=== PATIENT | male | born 1960 | race African-American/Black ===

== ENCOUNTER 2024-09-19 10:50 | Emergency (ER) | payer MEDICAID, SELFPAY ==
--- NOTE | ~2024-09-19 | CT_ITS ---
CLINICAL HISTORY: neck pain CT cervical spine without contrast Comparison: None Findings: Degenerative changes of the cervical spine with osteophyte formation. There is narrowing of the C2-C3, C3-C4, C5-C6 intervertebral disc space. There is grade 1 retrolisthesis of C5 on C6. No acute fractures or dislocations. C1-C2: Unremarkable C2-C3: Unremarkable C3-C4: No spinal stenosis. Mild bilateral neural foramina stenosis. C4-C5: Unremarkable C5-C6: No spinal stenosis. Mild bilateral neural foramina stenosis. C6-C7: Unremarkable C7-T1: Unremarkable No acute findings on limited view of the intracranial contents. Soft tissues of the neck are normal. Lung apices are clear. IMPRESSION: No acute findings. Degenerative changes of the cervical spine as above. This document has been electronically signed by: Anton Buckley MD on 09/19/2024 12:58:02
[2024-09-19 11:41] VITALS: BP 133/91; PULSE 85; RESP 16; TEMP 36.2; O2SAT 100; BMI 26.4
--- NOTE | 2024-09-19 11:43 | ED.GENADULT ---
HPI - General Adult General Chief complaint: Neck Pain/Injury Stated complaint: Neck pain Time Seen by Provider: 09/19/24 13:30 Source: patient Mode of arrival: ambulatory Limitations: no limitations History of Present Illness ED Provider: KAEL LOMELI narrative: 64 yo male with PMH of HIV, HTN, not on thinners here with c/o neck pain s/p waking up with symptoms with pain and spasm to R neck. He can move the neck but it hurts to turn to the right. No numbness, weakness, fevers. No other neuro symptoms. He is currently being worked up for leg pain and constipation which has been 2+ months. He has no rash and no other symptoms. 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 Onset (ago): day(s) (1) Radiation: neck Severity: moderate Quality: aching Pain Consistency: intermittent Relieving factors: none Exacerbating factors: movement Associated symptoms: denies other symptoms Treatments prior to arrival: none Related Data Previous Rx's ?Medication ?Instructions ?Recorded cyclobenzaprine 10 mg tablet 10 mg PO TID PRN muscle spasm #20 09/19/24 tabs ibuprofen 600 mg tablet 600 mg PO Q6H PRN pain #30 tabs 09/19/24 lidocaine 5 % topical patch 1 patch topical DAILY #30 ea 09/19/24 Allergies Allergy/AdvReac Type Severity Reaction Status Date / Time No Known Allergies Allergy Verified 09/19/24 11:43 [No Known Allergies*] Review of Systems Review of Systems: Constitutional : No Fever, No Chills, No Fatigue ENT/Mouth : No sore throat, No Rhinorrhea Eyes: No Eye Pain, No Swelling, No Redness Cardiovascular : No Chest Pain, No SOB, No Dyspnea on Exertion Respiratory : No Cough, No Sputum Gastrointestinal : No Nausea, No Vomiting, No Diarrhea, No abdominal Pain Genitourinary : No Dysuria, No Urinary Frequency, No Hematuria, Musculoskeletal : No joint pain, No Myalgias, No Joint Swelling, pos neck pain Skin : No Skin Lesions, No rash Neuro : No Weakness, No Numbness, No Dizziness, no Headache Psych : No Anxiety/Panic, No Depression All other systems reviewed and are negative Physical Exam ED Vital Signs: Vital Signs - 24 hr 09/19/24 11:41 Temperature 97.2 F Pulse Rate 85 Respiratory Rate 16 Blood Pressure 133/91 H Pulse Oximetry 100 Oxygen Delivery Method Room Air BMI result Body Mass Index 26.4 Appearance: Alert. Oriented X3. No acute distress. Eyes: Pupils equal, round and reactive to light. ENT: Pharynx normal. Neck: R lateral trapezius spasm noted and ttp pain with turning head to the R, no rash or mass seen UE intact CVS: Normal heart rate and rhythm. Pulses normal. Respiratory: No respiratory distress. Breath sounds normal. Abdomen: Soft and nontender. Skin: Skin warm and dry. Normal skin color. Normal skin turgor. Extremities: No lower extremity edema. No calf ttp Neuro: Oriented X 3. No motor deficit. No sensory deficit. CN2-12 intact Course Course Course Narrative: RME performed by Amber Allen PA-C. Patient is a 64 year old assigned male at presenting to the emergency department with neck pain. Patient states last night he started having neck pain and he isn't sure if he slept on it funny or why it hurts. Patient states that it hurts when moving his head side to side. Detailed physical exam and review of systems are deferred to the wireless watcher. EKG, labs, and imaging ordered. Patient placed back in the waiting room pending room availability and results. Medical Decision Making Medical Decision Making MDM Narrative: 64 yo male with HIV, HTN, compliant with medications, chronic constipation who reports he woke up yesterday with R sided neck pain can turn it fine to he left but he feels pain when turning it to the right. He has no numbness, weakness, loss of control of bladder. He is not on thinners and no fevers. Pain is reproduceable he has no CP/SOB has EKG changes but neg trop and clinically not consistent with ACS. Labs and CT scan start on medications refer to PCP. He has upcoming spine appointment Differential Diagnosis Differential Diagnoses: The differential diagnosis associated with the presentation includes sprain, strain Admission/Observation Consideration of admission/observation: Escalation of care including admission/observation considered not toxic stable for DC Lab Data [facility] Lab Attestation statement: I reviewed the patient's lab results. 09/19/24 11:52 09/19/24 11:52 Labs: Lab Results 09/19/24 Range/Units 11:52 WBC 5.6 (4.8-10.8) X10*3/uL RBC 4.47 L (4.60-5.80) X10*6/uL Hgb 13.2 L (14.0-18.0) g/dl Hct 40.1 L (42.0-52.0) % MCV 89.7 (80.0-98.0) fL MCH 29.5 (27.0-33.0) pg MCHC 32.9 (31.0-36.0) g/dl RDW 14.2 (11.0-16.0) % Plt Count 213 (160-400) X10*3/uL MPV 10.0 (9.4-12.4) fL Immature Gran % (Auto) 0.2 (0.0-0.4) % Neut % (Auto) 39.2 L (45-73) % Lymph % (Auto) 46.8 H (20-40) % [place] % (Auto) 9.0 (2-11) % Eos % (Auto) 4.1 H (0-4) % Baso % (Auto) 0.7 (0-2) % Lymph # (Auto) 2.6 (1.2-4.9) X10*3/uL [place] # (Auto) 0.5 (0.1-1.2) X10*3/uL Eos # (Auto) 0.2 (0.0-0.4) X10*3/uL Baso # (Auto) 0.0 (0.0-0.2) X10*3/uL Abs Immat Gran (auto) 0.01 (0.00-0.03) X10*3/uL Absolute Neuts (auto) 2.2 (2.0-8.3) x10*3/uL Absolute Nucleated RBC 0.000 (0.0-0.012) X10*3/uL Nucleated RBC % (auto) 0.0 (0.0-0.2) /100WBC Sodium 142 (135-145) mmol/L Potassium 4.4 (3.3-5.1) mmol/L Chloride 112 H (96-108) mmol/L Carbon Dioxide 22 (22-29) mmol/L Anion Gap 12 (12-20) BUN 13 (9-16) mg/dL Creatinine 1.06 (0.5-1.4) mg/dL Estim Creat Clear Calc 79.5 Estimated GFR > 60 Random Glucose 75 (60-115) mg/dL Calcium 9.3 (8.4-10.2) mg/dL Magnesium 1.7 (1.6-2.6) mg/dL Total Bilirubin 0.4 (0.0-1.0) mg/dL AST 20 (5-37) U/L ALT 10 (0-40) U/L Alkaline Phosphatase 78 (39-117) U/L Troponin I High Sens < 2.7 (<3.5-35.0) ng/L Total Protein 6.9 (6.5-8.0) g/dL Albumin 4.0 (3.5-5.0) g/dL Independent Interpretation I performed an independent interpretation of an: EKG and CT Scan (no fracture) Interpretation: Rate: 81 Rhythm: NSR [place]: left Normal P waves. Normal [place]. Normal QRS complex. ST T wave : no MIRA, nonspecifical ST T wave changes anterior leads qTC: 399 prior studies: no prior The study has been interpreted contemporaneously by me. . Radiology Impression Discussion of test interpretation with radiology: I have reviewed the radiologist's reading. External Record Review External record reviewed: Outpatient record Prescription Management I considered prescription management with: Pain Medication and Other Discharge Plan Discharge Clinical Impression: Muscle spasms of neck Patient Disposition: Home, Self-Care Instructions: Muscle Spasm (ED) Additional Instructions: follow up with spine doctor return for any worsening symptoms such as pain, swelling, fevers, numbness, weakness or any other concerns CT scan shows arthritis labs reassuring EKG nonspecific changes that you can repeat with your doctor but labs and symptoms not suggestive of issues with the heart Prescriptions: New cyclobenzaprine 10 mg tablet 10 mg PO TID PRN (Reason: muscle spasm) Qty: 20 0RF lidocaine 5 % adhesive patch,medicated 1 patch topical DAILY Qty: 30 0RF Rx Instructions: leave on most painful area for up to 12 hrs ibuprofen 600 mg tablet 600 mg PO Q6H PRN (Reason: pain) Qty: 30 0RF Stand Alone Forms: Work/School Release Print Language: Trinidadian
--- NOTE | 2024-09-19 11:44 | ECG_ITS ---
Test Reason : NECK PAIN Blood Pressure : */* mmHG Vent. Rate : 81 BPM Atrial Rate : 81 BPM P-R Int : 166 ms QRS Dur : 78 ms QT Int : 344 ms P-R-T Axes : 60 14 28 degrees QTcB Int : 399 ms Normal sinus rhythm Cannot rule out Inferior infarct , age undetermined Abnormal ECG No previous ECGs available Referred By: Amber Allen Electronically Signed By: MITRA KIRKLAND MD
[2024-09-19 11:59] LABS: MANUAL DIFF FLAG NO
[2024-09-19 12:03] LABS: Basophils Percent Auto 0.7 % (0-2); Eosinophils Absolute Auto 0.2 X10*3/uL (0.0-0.4); Eosinophils Percent Auto 4.1 % (0-4); Hematocrit 40.1 % (42.0-52.0); Hemoglobin 13.2 g/dl (14.0-18.0); Imm Gran Abs Auto 0.01 X10*3/uL (0.00-0.03); Imm Gran Pct Auto 0.2 % (0.0-0.4); Lymphocytes Absolute Auto 2.6 X10*3/uL (1.2-4.9); Lymphocytes Percent Auto 46.8 % (20-40); Mean Corpuscular HGB Conc 32.9 g/dl (31.0-36.0); Mean Corpuscular Hemoglobin 29.5 pg (27.0-33.0); Mean Corpuscular Volume 89.7 fL (80.0-98.0); Monocytes Absolute Auto 0.5 X10*3/uL (0.1-1.2); Neutrophils Absolute Auto 2.2 x10*3/uL (2.0-8.3); Neutrophils Percent Auto 39.2 % (45-73); Platelet Count 213 X10*3/uL (160-400); Red Blood Count 4.47 X10*6/uL (4.60-5.80); Red Cell Distribution Width 14.2 % (11.0-16.0); White Blood Count 5.6 X10*3/uL (4.8-10.8)
[2024-09-19 12:17] LABS: Alanine Aminotransferase 10 U/L (0-40); Alkaline Phosphatase 78 U/L (39-117); Anion Gap 12 (12-20); Aspartate Amino Transferase 20 U/L (5-37); Bilirubin Total 0.4 mg/dL (0.0-1.0); Blood Urea Nitrogen 13 mg/dL (9-16); Calcium 9.3 mg/dL (8.4-10.2); Carbon Dioxide 22 mmol/L (22-29); Chloride 112 mmol/L (96-108); Creatinine Clr Calc Pharmacy 79.5; Estimated Glomerular Filt Rate > 60; Glucose Random 75 mg/dL (60-115); Magnesium 1.7 mg/dL (1.6-2.6); Potassium 4.4 mmol/L (3.3-5.1); Sodium 142 mmol/L (135-145); Total Protein 6.9 g/dL (6.5-8.0)
[2024-09-19 12:26] LABS: Troponin-I High Sensitivity < 2.7 ng/L (<3.5-35.0)
[2024-09-19 14:01] VITALS: BP 133/91; PULSE 85; RESP 16; TEMP 36.2; O2SAT 100
== END 2024-09-19 14:02 | disposition home or self-care (01) ==
PROVIDERS: Physician Assistant Medical; Emergency Provider Emergency Medicine
DX: M62.838 Other muscle spasm (principal); M54.2 Cervicalgia; I10 Essential (primary) hypertension; R94.31 Abnormal electrocardiogram [ECG] [EKG]; Z79.899 Other long term (current) drug therapy
CPT/HCPCS: 36415; 72125; 80053; 83735; 84484; 85025; 93005; 99283; 99284

== ENCOUNTER → 2024-09-19 11:44 | Outpatient (BNV) | payer MEDICAID, SELFPAY | PROVIDERS: Emergency Provider Emergency Medicine; Visit Provider Internal Medicine Cardiovascular Disease | DX: R94.31 Abnormal electrocardiogram [ECG] [EKG] (principal); M54.2 Cervicalgia | CPT/HCPCS: 93010 ==

== ENCOUNTER → 2024-09-19 11:44 | Outpatient (BNV) | payer OTHER, SELFPAY | PROVIDERS: Visit Provider Nuclear Medicine | DX: M54.2 Cervicalgia (principal) | CPT/HCPCS: 72125 ==

== ENCOUNTER 2025-03-07 12:40 | Emergency (ER) | payer MEDICAID, SELFPAY ==
--- NOTE | ~2025-03-07 | CT_ITS ---
CLINICAL HISTORY: HIV, abdominal pain, weightloss CT abdomen and pelvis with contrast Comparison: None provided Findings: No consolidation or effusion. Pancreas is unremarkable. No urolithiasis. Tiny left-sided hypodense renal cysts. Possible tiny gallstones without CT evidence for cholecystitis. Gastro duodenal mural thickening with stranding concerning for gastroenteritis. No bowel obstruction. Fat containing umbilical hernia. Prostatomegaly noted. Scattered colonic diverticulosis without diverticulitis or colitis. Normal appendix. Circumferential bladder wall thickening. Osteopenia with diffuse multilevel spondylosis. Superior endplate height loss at L1, chronic appearing. IMPRESSION: 1. Possible gastroenteritis. 2. Circumferential bladder wall thickening may be related to degree of underdistention or mild cystitis. This document has been electronically signed by: Cirilo Liao MD on 03/07/2025 17:40:12
[2025-03-07 12:51] VITALS: BP 130/88; PULSE 77; RESP 17; TEMP 36.3; O2SAT 98; BMI 28.5
--- NOTE | 2025-03-07 12:51 | ED_ITS ---
HPI - Abdominal Pain General Chief Complaint: Abdominal Pain Stated Complaint: stomach virus, vomiting Time Seen by Provider: 03/07/25 15:05 History of Present Illness ED Provider: Oscar LOMELI narrative: The patient is a 64-year-old male with a history of HIV. He says that he has had HIV for several years. He is on anti-retroviral medication and he says that his viral load is undetectable. He gets his primary care at the [facility] clinic and has an infectious disease specialist at [facility]. The patient says that for the last week he has been having problems with diffuse abdominal pain that is associated with nausea and vomiting. He says he has had similar problems in the past. He has been evaluated for these symptoms but has never been given any significant diagnosis or treatment. He says that he takes anti HIV medications but is on no medications for abdominal symptoms or syndromes. The patient says that he believes he has lost 20 lb in the last few weeks because of the symptoms. He says he is frustrated because he keeps having abdominal symptoms that no one can diagnose. Related Data Previous Rx's ?Medication ?Instructions ?Recorded cyclobenzaprine 10 mg tablet 10 mg PO TID PRN muscle s pasm #20 09/19/24 tabs ibuprofen 600 mg tablet 600 mg PO Q6H PRN pain #30 t abs 09/19/24 lidocaine 5 % topical patch 1 patch topical DAILY #30 ea 09/19/24 omeprazole 40 mg capsule,delayed 40 mg PO DAILY #30 ca ps 03/07/25 release ondansetron 4 mg disintegrating 4 mg PO Q6H PRN nausea and 03/07/25 tablet vomiting #10 tabs sucralfate 1 gram tablet 1 g PO TID #60 tabs 03/07/25 Allergies Allergy/AdvReac Type Severity Reaction Status Date / Time No Known Allergies (No Known Allergy Verified 03/07/25 12:52 Allergies*) PMF Social History Social History Advance Directives: No Advance Directives Information Provided: No Do you have a plan to hurt others: No Plan Physical Exam ED Vital Signs: Vital Signs - 24 hr 03/07/25 12:51 03/07/25 14:29 03/07/25 16:11 Temperature 97.4 F 97.9 F 98.2 F Pulse Rate 77 58 56 Respiratory Rate 17 16 18 Blood Pressure 130/88 122/81 124/78 Pulse Oximetry 98 99 99 Oxygen Delivery Method Room Air Room Air Room Air 03/07/25 18:40 Temperature 97.1 F Pulse Rate 62 Respiratory Rate 16 Blood Pressure 144/88 H Pulse Oximetry 99 Oxygen Delivery Method Room Air BMI result Body Mass Index 28.5 Const Other: The patient is awake and alert. He does not appear acutely ill. Orientation/consciousness: patient oriented x3 HENMT Other: The face is symmetrical. ?Mucous membranes moist. Eyes Other: Pupils are round equal, conjunctivae are clear, extraocular movements intact Neck Neck: Yes normal visual inspection, Yes full ROM and Yes no lymphadenopathy Resp Effort & Inspection: normal respiratory effort Auscultation: clear to auscultation bilaterally Cardio Rate: regular rate Rhythm: regular rhythm Heart sounds: S1 normal heart sound present and S2 normal heart sound present GI Other: The abdomen is flat soft. It is diffusely tender. No rebound or guarding. Skin General skin exam: no rashes or lesions noted Neuro General: patient oriented x3, tone normal, moves all extremities, no focal motor deficits and CN's II-XI intact bilaterally Extrem Other: No peripheral edema Course Course Course Narrative: This is an RME performed by Suzette Kelley CNP: Additional HPI, ROS, PE not included below will be deferred to primary provider. Patient is a 64 year old male who presents emergency department for evaluation reporting my stomach is messed up again like a virus , diffuse pain x 1 week, nausea and vomiting, cough, dysuria. Plan: serum labs, U/A, viral serologies Medical Decision Making Medical Decision Making MDM Narrative: The patient is a 64-year-old male with a well-controlled HIV who presents complaining of 1 week of abdominal pain. He seems to indicate pain across his upper abdomen. He also says that he has lost about 20 lb over the last couple of months. He has a fairly benign abdominal exam. I do not think he has a surgical abdomen. Vital signs were unremarkable. The patient described his symptoms as being quite severe and accompanied with a 20 lb weight loss. Therefore a CT of the abdomen and pelvis with IV contrast was done. This shows no definite acute findings. Labs were unremarkable. His total bilirubin was mildly elevated. His direct bilirubin was almost normal. Other LFTs unremarkable. My overall impression is that the patient may have gastritis. He will be started on omeprazole daily and p.r.n. sucralfate. He should follow up with his PCP and discuss a possible referral to a bag valver. He requested a work note. He is scheduled to work [employer]. A work note was provided. Lab Data 03/07/25 13:01 03/07/25 13:01 Labs: Lab Results 03/07/25 03/07/25 Range/Units 13:01 16:50 WBC 4.9 (4.8-10.8) X10*3/uL RBC 5.59 D (4.60-5.80) X10*6/uL Hgb 16.9 D (14.0-18.0) g/dl Hct 48.6 D (42.0-52.0) % MCV 86.9 (80.0-98.0) fL MCH 30.2 (27.0-33.0) pg MCHC 34.8 (31.0-36.0) g/dl RDW 14.4 (11.0-16.0) % Plt Count 193 (160-400) X10*3/uL MPV 9.9 (9.4-12.4) fL Immature Gran % (Auto) 0.2 (0.0-0.4) % Neut % (Auto) 45.5 (45-73) % Lymph % (Auto) 42.6 H (20-40) % [place] % (Auto) 8.7 (2-11) % Eos % (Auto) 2.0 (0-4) % Baso % (Auto) 1.0 (0-2) % Lymph # (Auto) 2.1 (1.2-4.9) X10*3/uL [place] # (Auto) 0.4 (0.1-1.2) X10*3/uL Eos # (Auto) 0.1 (0.0-0.4) X10*3/uL Baso # (Auto) 0.1 (0.0-0.2) X10*3/uL Abs Immat Gran (auto) 0.01 (0.00-0.03) X10*3/uL Absolute Neuts (auto) 2.2 (2.0-8.3) x10*3/uL Absolute Nucleated RBC 0.000 (0.0-0.012) X10*3/uL Nucleated RBC % (auto) 0.0 (0.0-0.2) /100WBC Sodium 140 (135-145) mmol/L Potassium 3.8 (3.3-5.1) mmol/L Chloride 108 (96-108) mmol/L Carbon Dioxide 22 (22-29) mmol/L Anion Gap 14 (12-20) BUN 12 (9-16) mg/dL Creatinine 1.31 (0.5-1.4) mg/dL Estim Creat Clear Calc 70.2 Estimated GFR 55 Random Glucose 90 (60-115) mg/dL Calcium 9.2 (8.4-10.2) mg/dL Total Bilirubin 2.4 H (0.0-1.0) mg/dL Direct Bilirubin 0.6 H (0.0-0.5) mg/dL AST 19 (5-37) U/L ALT 12 (0-40) U/L Alkaline Phosphatase 56 (39-117) U/L Total Protein 7.3 (6.5-8.0) g/dL Albumin 4.5 (3.5-5.0) g/dL Lipase 11 (8-78) U/L Urine Color Dark Yellow Urine Appearance Clear Urine pH 6.0 (5.0-9.0) Ur Specific [place] >= 1.030 H (1.005-1.025) Urine Protein 30 (1+) H (Neg-Trace) mg/dL Urine Glucose (UA) Negative (Negative) mg/dL Urine Ketones 15 (Negative) mg/dL Urine Blood Negative (Negative) Urine Nitrite Negative (Negative) Ur Leukocyte Esterase Trace H (Negative) Urine RBC 0-2 (0-2) /HPF Urine WBC 0-5 (0-5) /HPF Ur Squamous Epith Cells 0-2 (0-2) /HPF Urine Bacteria None Seen (None Seen) Hyaline Casts 0-2 (0-2) /LPF Urine Opiates Screen Not Detected (Not Detect) Ur Buprenorphine Scrn Not Detected (Not Detect) ng/mL Ur Oxycodone Screen Not Detected (Not Detect) ng/mL Urine Methadone Screen Not Detected (Not Detect) ng/mL Urine Fentanyl Screen Not Detected (Not Detect) Ur Barbiturates Screen Not Detected (Not Detect) Ur Phencyclidine Scrn Not Detected (Not Detect) Ur Amphetamines Screen Not Detected (Not Detect) U Benzodiazepines Scrn Not Detected (Not Detect) Urine Cocaine Screen Not Detected (Not Detect) U Marijuana (THC) Screen POSITIVE H (Not Detect) Medications Administered Generic Name Dose Route Start Last Admin Trade Name Freq PRN Reason Stop Dose Admin Lactated Ringer's 1,000 mls @ 999 mls/hr 03/07/25 18:30 03/07/25 18:46 Lr IV 03/07/25 19:30 999 mls/hr .Q1H1M ALLYN Administration Discontinued Medications Generic Name Dose Route Start Last Admin Trade Name Freq PRN Reason Stop Dose Admin Famotidine 20 mg 03/07/25 15:29 03/07/25 15:37 Famotidine/Pf 20 Mg/2 Ml Vial IVPUSH 03/07/25 15:30 20 mg ONCE ONE Administration Sodium Chloride 1,000 mls @ 999 mls/hr 03/07/25 15:15 03/07/25 16:34 Ns IV 03/07/25 16:15 Infused .Q1H1M ALLYN Infusion Iohexol 100 ml 03/07/25 16:44 03/07/25 16:48 Iohexol 350 Mg/Ml 100 Ml Infus..Btl IV 03/07/25 16:45 85 ml ONCE ONE Administration Sucralfate 1 gm 03/07/25 18:24 03/07/25 18:46 Sucralfate Oral Suspension 1 Gm/10 Ml Oral.Susp PO 03/07/25 18:25 1 gm ONCE ONE Administration Discharge Plan Discharge Clinical Impression: Upper abdominal pain Patient Disposition: Home, Self-Care Instructions: Gastritis (ED) Additional Instructions: I think your abdominal symptoms may be coming from a stomach acid problem. You may have a condition that we called ?gastritis. ? This is an irritation of the lining of the stomach related to acid. I have sent a prescription for the medication omeprazole to your pharmacy. Please take this medication once a day. This medication reduces stomach acid production over time. I have also sent a prescription for an additional medication called sucralfate that you can take up to 3 times a day on an as-needed basis. Use this medication only when you feel you need to take something for your discomfort. I have also sent a prescription for ondansetron, a medication you can use if you feel nauseated. Please keep yourself well hydrated. Please follow up soon with your regular doctor at the [facility] and discuss whether you should see a bag valver. Return to the emergency room if significantly worse. Prescriptions: New omeprazole 40 mg capsule,delayed release(DR/EC) 40 mg PO DAILY Qty: 30 0RF sucralfate 1 gram tablet 1 g PO TID Qty: 60 0RF ondansetron 4 mg tablet,disintegrating 4 mg PO Q6H PRN (Reason: nausea and vomiting) Qty: 10 0RF No Action cyclobenzaprine 10 mg tablet 10 mg PO TID PRN (Reason: muscle spasm) Qty: 20 0RF lidocaine 5 % adhesive patch,medicated 1 patch topical DAILY Qty: 30 0RF Rx Instructions: leave on most painful area for up to 12 hrs ibuprofen 600 mg tablet 600 mg PO Q6H PRN (Reason: pain) Qty: 30 0RF Referrals: [facility] [Provider Group] Stand Alone Forms: Work/School Release Print Language: Yoruba
--- OUTSIDE RECORDS SUMMARY | 2025-03-07 13:06 | XMS_ITS | Clinical Summary ---
Author Organization [facility] Address [address] [place] [address] Care Team Providers Care Advertising Traffic Manager Name Role Phone Belkys Mackay PA-C Primary Care Provider [phone] Source Comments PLEASE NOTE, if this patient is a minor, it may be UNLAWFUL to discuss sensitive information that is contained in these records (such as FAMILY PLANNING, MENTAL HEALTH or SUBSTANCE ABUSE) with the minor patient's parent or other person without the patient's specific authorization.[facility] Allergies Active Allergy Reactions Criticality Noted Date Comments Sulfa (Sulfonamide Antibiotics) Swelling 01/2024 Medications DOVATO 50-300 mg tab TAKE 1 TABLET BY MOUTH EVERY DAY STOP BIKTARVY Active hydrOXYzine HCL (ATARAX) 25 mg tabletIndications :Sleeping difficulties Take 1 Tablet by mouth nightly at bedtime as needed for sleep 90 Tablet 5 Active lisinopriL 10 mg tabletIndications :Hypertension, unspecified type TAKE 1 TABLET BY MOUTH EVERY DAY 90 Tablet 5 Active diclofenac sodium (VOLTAREN) 1 % gelIndications:Ch ronic pain of both knees,Degenerativ e tear of posterior horn of medial meniscus of left knee,Chondromalac ia of left knee,Chronic low back pain, unspecified back pain laterality, unspecified whether sciatica present,Lumbar spondylosis APPLY 4 G TOPICALLY 2 (TWO) TIMES DAILY 300 g 5 Active Active Problems Problem Noted Date Diagnosed Date CKD stage 3a, GFR 45-59 ml/min (CMS & HHS-HCC) 0 12/04/2024 Low iron 12/04/2024 H/O colonoscopy 12/03/2024 Overview (12/03/2024): 12/02/2024 1:43 PM T - [facility] - Preparation of the colon was unsatisfactory. Procedure just to sigmoid colon (mid sigmoid) - One 7 mm polyp in the sigmoid colon, removed with a hot snare. Resected and retrieved. Recommendation: - Patient has a contact number available for emergencies. The signs and symptoms of potential delayed complications were discussed with the patient. Return to normal activities tomorrow. Written discharge instructions were provided to the patient. - Resume previous diet. - Continue present medications. - Await pathology results. - Repeat colonoscopy within 3 months for surveillance. Degenerative tear of posteri or horn of medial meniscus of left knee 12/03/2024 Chondromalacia of left knee 12/03/2024 Chronic low back pain 03/11/2024 Erectile dysfunction of organic origin Chronic hepatitis C virus infection ([facility]) 03/10/2024 H/O repair of left rotator cuff 03/10/2024 Hypertension 03/10/2024 Lumbar spondylosis 03/10/2024 Human immunodeficiency virus (HIV) infection ([facility]) 01/28/2021 Benign neoplasm of colon 09/24/2013 Encounters Date Type Department Care Team Description 02/10/2025 9:40 AM EDT Office Visit [facility] [address] [place] [address] Belkys Mackay PA-C 12/29/2024 Interim Notes [address] [address] Kellie Gomez 12/08/2024 Interim Notes [address] [address] Kellie Gomez from Last 3 Months Immunizations Immunization Administration Dates Next Due DT (PEDIATRIC) 05/06/2009 INFLUENZA, SEASONAL, INJECTABLE 05/08/20 22,05/23/2021,04/18/2019,04/05,04/14/2013,04/13/2011,05/05/2010 Influenza, Whole 05/06/2009 PNEUMOCOCCAL POLYSACCHARIDE PPV23 (Pneumovax 23) 04/13/2011 Family History Medical History Relation Name Comments Cancer Sister Relation Name Status Comments Father Alive Mother Alive Sister Social History Tobacco Use Types Packs/Day Years Used Date Smoking Tobacco: Former Cigarettes Passive Smoke Exposure: Never Smokeless Tobacco: Never Tobacco Cessation:Counseling Given: Not Answered Comments:Quit 40 years ago Alcohol Use Standard Drinks/Week Comments Never 0 (1 standard drink = 0.6 oz pur e alcohol) Social Connections Answer Date Recorded How often do you feel lonely or isolated from th ose around you? 2 09/23/2024 Financial Resource Strain Answer Date R ecorded Hard to pay for: Utilities 2 09/23 Stress Answer Date Recorded Do you feel these kinds of stress these days? 2 09/23/2024 Physical Activity Answer Date Recorded Physical Activity 0 01/02/2024 Food Insecurity Answer Date Recorded Within the past 12 months, t he food you bought just didn't last and you didn't have enough money to get more. 2 09/23/19 Transportation Needs Answer Date Record ed Hard to pay for: Transportation 1 09/23/2024 Housing Stability Answer Date Recorded Hard to pay for: Rent/Mortgage payment 2 09/23/2024 Safety and Environment Answer Date Robert rded Safety 0 01/02/2024 Utilities Answer Date Recorded Hard to pay for: Utilities 2 09/23 Employment Answer Date Recorded Stress 0 04/25/2024 Sex and Gender Information Value Date Recorded Sex Assigned at Male 01/02/2024 11:45 AM PDT Legal Sex Male 6:47 AM PDT Gender Identity Male 01/02/2024 11:45 AM PDT Sexual Orientation Straight 01/02/2024 11 :45 AM PDT Last Filed Vital Signs Vital Sign Reading Time Taken Comments Blood Pressure 131/93 02/10/2025 10:09 AM EDT Pulse 76 02/10/2025 10:09 AM EDT Temperature 36.6 C (97.9 F) 02/10/2025 10:09 AM EDT Respiratory Rate 16 02/10/2025 10:09 AM EDT Oxygen Saturation 98% 02/10/2025 10:09 AM EDT Inhaled Oxygen Concentration - - Weight 95.3 kg (210 lb) 02/10/2025 10:09 AM EDT Height 185.4 cm (6' 1 ) 02/10/2025 10:09 AM EDT Body Mass Index 27.71 02/10/2025 10:09 AM EDT Plan of Treatment Health Maintenance Due Date Last Done Comments Imm-Meningococcal (1 - Risk 2-dose series) 1962 Imm-MMR (1 of 2 - Risk 2-dose series) 1978 Imm-DTaP/Tdap/Td (1 - Tdap) 1979 Imm-Zoster, Recombinant (1 of 2) 1979 CT Colonography 2005 Colonoscopy 2005 Colorectal Cancer Screening 2005 FIT/gFOBT 2005 Fecal DNA 2005 Flexible Sigmoidoscopy 2005 Imm-Pneumococcal 50+ (2 of 2 - PCV) 04/13/2012 04/13/2011 [id number] (3 - season) 2024 12/22/2020, 12/01/2020 Tobacco Screening 03/10/2025 03/10/2024 Imm-Influenza (#1) 2025 05/08/2022, 1 , 04/18/2019, Additional history exists Annual Wellness (Adult): Indicated (All Coverage) 12/03/2025 12/03/2024 Anxiety Screening 12/03/2025 12/03/2024 Imm-Hepatitis A (1 of 2 - Risk 2-dose series) 12/03/2025 Postponed from 1979 (Patient postponement) Lipid Screening 12/03/2025 12/03/2024 Diabetes Screening 12/04/2027 12/03/2024, 0 09/17/2024, 09/17/2024, Additional history exists Alcohol and Drug Screen Completed 12/03/2024, 03/10 Depression Annual Screen Completed 12/03/2024 Hepatitis B Screening Completed 12/04/2024 Imm-HIB Aged Out No longer eligi ble based on patient's age to complete this topic Imm-Hepatitis B Discontinued Procedures Procedure Name Priority Date/Time Associated Diagnosis Comments HEPATITIS B SURFACE ANTIGEN, QUANTITATIVE, MONITORING Routine 12/04/2024 1:39 PM EDT Screening due COMPREHENSIVE METABOLIC PANEL Routine 12/03/2024 9:37 AM EDT Annual physical exam LIPID PANEL Routine 12/03/2024 9:37 AM EDT Annual physical exam from Last 3 Months or Most Recently Relevant to Health Maintenance Results * HEPATITIS B SURFACE ANTIGEN, QUANTITATIVE, MONITORING (12/04/2024 1:39 PM EDT) Pathologist [facility] HEPATITIS B SURFACE AG, QN, MONITORING <0.05 IU/mL [facility]/Ellyn MARR Comment: REFERENCE RANGE: <0.05 IU/mL The HBsAg Quantitative test should not be used to diagnose HBV infection. For HBV diagnosis, test code 498(X) Hepatitis B Surface Antigen with Reflex Confirmation and test code 501(X) Hepatitis B Core Antibody, Total are recommended. Quantitative HBsAg should be used to confirm ongoing hepatitis B virus (HBV) replication, evaluate prognosis in selected patients, and monitor response to antiviral treatment. For additional information, please refer to http://education.afterBOT/faq/ALT749 (This link is being provided for informational/ educational purposes only.) Blood Blood / Unknown 12/04/2024 1 :39 PM EDT 12/04/2024 1:39 PM EDT us Belkys Mackay PA-C LAB - BLOOD DRAW Final Resu lt [employer] [facility] [address] [place] [address] [employer]/[facility] [address] [place] [address] * LIPID PANEL (12/03/2024 9:37 AM EDT) Pathologist [facility] CHOLESTEROL, TOTAL 178 <200 mg/dL [facility] HDL CHOLESTEROL 70 > OR = 40 mg/dL [employer] TRIGLYCERIDES 65 <150 mg/dL [facility] LDL-CHOLESTEROL 93 99 mg/dL (calc) [employer] Comment: Reference range: <100 Desirable range <100 mg/dL for primary prevention; <70 mg/dL for patients with CHD or diabetic patients with > or = 2 CHD risk factors. LDL-C is now calculated using the Kieran calculation, which is a validated novel method providing better accuracy than the Friedewald equation in the estimation of LDL-C. Panchito ROSENBERG et al. JOSE MARTIN. 2013;310(19): 1291-7376 (http://education.Kynded.[employer]/faq/QXG155) CHOL/HDLC RATIO 2.5 <5.0 (calc) [employer] NON-HDL CHOLESTEROL 108 <130 mg/dL (calc) [facility] Comment: For patients with diabetes plus 1 major ASCVD risk factor, treating to a non-HDL-C goal of <100 mg/dL (LDL-C of <70 mg/dL) is considered a therapeutic option. Blood Blood / Unknown 12/03/2024 9 :37 AM EDT 12/03/2024 9:37 AM EDT Belkys Mackay PA-C LAB - BLOOD DRAW Final Resu lt [employer] [address] [address], [employer] [address] [address] * (ABNORMAL) COMPREHENSIVE METABOLIC PANEL (12/03/2024 9:37 AM EDT) GLUCOSE 89 65 - 99 mg/dL [facility] Comment: Fasting reference interval UREA NITROGEN (BUN) 13 7 - 25 mg/dL [facility] CREATININE (blood) 1.45(H) 0.70 - 1.35 mg/dL [facility] EGFR 54(L) > OR = 60 mL/min/1. 73m2 [facility] BUN/CREATININE RATIO 9 6 - 22 (calc) [facility] SODIUM 137 135 - 146 mmol/L [facility] POTASSIUM 4.4 3.5 - 5.3 mmol/L [facility] CHLORIDE 104 98 - 110 mmol/L [facility] CARBON DIOXIDE 23 20 - 32 mmol/L [facility] CALCIUM 9.5 8.6 - 10.3 mg/dL [facility] PROTEIN, TOTAL 7.1 6.1 - 8.1 g/dL [facility] ALBUMIN 4.5 3.6 - 5.1 g/dL [facility] GLOBULIN 2.6 1.9 - 3.7 g/dL (calc) [facility] ALBUMIN/GLOBULI N RATIO 1.7 1.0 - 2.5 (calc) [facility] BILIRUBIN, TOTAL 1.2 0.2 - 1.2 mg/dL [employer] [facility] ALKALINE PHOSPHATASE 61 35 - 144 U/L [employer] [facility] AST 16 10 - 35 U/L [employer] [facility] ALT 11 9 - 46 U/L [employer] [facility] Blood Blood / Unknown 12/03/2024 9 :37 AM EDT 12/03/2024 9:37 AM EDT Belkys Mackay PA-C LAB - BLOOD DRAW Edited Res ult - Final [facility] [address] [address], [employer] [facility] [address] [place] [address] from Last 3 Months or Most Recently Relevant to Health Maintenance Insurance [facility] [employer] Care Teams Advertising Traffic Manager Relationship Specialty Start Date End Date Belkys Mackay PA-C [address] [place] [address] PCP - General Primary Care 11/27/24
--- OUTSIDE RECORDS SUMMARY | 2025-03-07 13:06 | XMS_ITS | Clinical Summary ---
Author Organization [facility] Address [address] [facility] [address] [place] [address] Phone Care Team Providers Care Bookbinding Machine Operator Name Role Phone Sofia Leslie MD Primary Care Provider + Allergies No known active allergies Medications Bictegravir-Emt ricitab-Tenofov (Biktarvy) 50-200-25 MG tablet Take 1 tablet by mouth 1 (one) time each day Active FLUoxetine (PROzac) 10 MG tablet Take 2 tablets by mouth 1 (one) time each day 04/19/2021 Active Active Problems Problem Noted Date Diagnosed Date Acute kidney failure, not otherwise specified Social History Tobacco Use Types Packs/Day Years Used Date Smoking Tobacco: Never Smokeless Tobacco: Never Alcohol Use Standard Drinks/Week Comments Not Currently 0 (1 standard drink = 0.6 oz pur e alcohol) Sex and Gender Information Value Date Recorded Sex Assigned at Not on file Legal Sex Male 11:42 AM EDT Gender Identity Not on file Sexual Orientation Not on file Last Filed Vital Signs Vital Sign Reading Time Taken Comments Blood Pressure 100/70 04/26/2021 2:58 PM EDT Pulse 80 04/26/2021 2:58 PM EDT Temperature - - Respiratory Rate - - Oxygen Saturation 97% 04/26/2021 2:58 PM EDT Inhaled Oxygen Concentration - - Weight 107 kg (236 lb) 04/26/2021 2:58 PM EDT Height 185.4 cm (6' 1 ) 12/07/2020 2:49 PM EDT Body Mass Index 31.14 12/07/2020 2:49 PM EDT Plan of Treatment Health Maintenance Due Date Last Done Comments Colorectal Cancer Screening: Annual FOBT 2009 Colorectal Cancer Screening: Colonoscopy 2009 Colorectal Cancer Screening: Sigmoidoscopy 2009 Pneumococcal Vaccine: 50+ Ye ars (1 of 1 - PCV) 2010 Influenza Vaccine (#1) 2025 Hepatitis B Vaccine Aged Out No longe r eligible based on patient's age to complete this topic Insurance [employer] Medicaid [employer] Medicaid Care Teams Bookbinding Machine Operator Relationship Specialty Start Date End Date Sofia Leslie MD [address] [place] [address] PCP - General 08/05/20
--- OUTSIDE RECORDS SUMMARY | 2025-03-07 13:06 | XMS_ITS | Encounter Summary ---
Author Organization [facility] Address [address] [place] [address] Phone Care Team Providers Care Metal Products Viewer Name Role Phone Laura Cooper MD Primary Care Provider [phone] [phone] Encounter Details Date Type Department Care Team (Late st Contact Info) Description 08/10/2022 Procedure Pass [facility], Ct Scan - [address] [address] Social History Tobacco Use Types Packs/Day Years Used Date Smoking Tobacco: Never Assessed Intimate Partner Violence Answer Date R ecorded Are you denied basic needs s uch as food, clothing, or medical care? No 08/10/2022 In the past 12 months have y ou been in a relationship with a person who hurts, threatens, or tries to control you? No 08/10/2022 Are you denied basic needs s uch as food, clothing, or medical care? No 08/10/2022 In the past 12 months have y ou been in a relationship with a person who hurts, threatens, or tries to control you? No 08/10/2022 Sex and Gender Information Value Date Recorded Sex Assigned at Male 03/13/2022 1:27 PM EDT Legal Sex Male 1:23 PM EDT Gender Identity Male 03/13/2022 1:27 PM EDT Sexual Orientation Straight 03/13/2022 1: 27 PM EDT documented as of this encounter Functional Status * Calculated C-SSRS Risk Score (Lifetime/Recent) Answer Date of Assessment Author No Risk Indicated 08/10/2022 3:20 PM Chirag Daigle RN * Long Suicide Severity Rating Scale (Screener/Recent Self-Report) Question Answer Date of Assessment Author 1. Wish to be (Past 1 Month) No 08/10/2022 3:20 PM EST Chirag Kerns Ma, RN 2. Non-Specific Active Suicidal Thoughts (Past 1 Month) No 08/10/2022 3:20 PM EST Chirag Kerns Ma, RN 6. Suicidal Behavior (Lifetime) No 08/10/2022 3:20 PM EST Chirag Kerns Ma, RN documented as of this encounter Plan of Treatment Not on file documented as of this encounter Visit Diagnoses Not on filedocumented in this encounter Additional Health Concerns Infection Onset Date Last Indicated Resolved Time CoV-Risk 08/10/2022 08/10/2022 08/21/2022 1:22 AM EST documented as of this encounter Care Teams Metal Products Viewer Relationship Specialty Start Date End Date Laura Cooper MD [address] [place] [address] PCP - General Internal Medicine 03/13/22 documented as of this encounter Additional Source Comments The information contained in this document represents components of the legal health record. It is not the complete legal health record.[facility]
--- OUTSIDE RECORDS SUMMARY | 2025-03-07 13:07 | XMS_ITS | Clinical Summary ---
Author Organization [facility] Address [address] [place] [address] Phone Care Team Providers Care Brush Cleaner Name Role Phone Mary LouJacqui Giovanni DAMIAN Primary Care Pr ovider Allergies No known active allergies Medications bisacodyL (DULCOLAX) 5 mg EC tablet Take 2 tablets by mouth right before beginning bowel prep. See instructions provided by the office 2 tablet 5 Active polyethylene glycol (Golytely) 236-22.74-6.74 -5.86 gram solution Take 4L by mouth once for one dose. May substitue any PEG. Starting at 6PM the night before your procedure drink 1 8oz glasses at your own pace until you complete half of the gallon. Finish 2nd half of the gallon 5 hours before your procedure. 4000 mL 5 Active lisinopriL (PRINIVIL,ZESTR IL) 10 mg tablet Take 1 tablet (10 mg total) by mouth 1 (one) time each day. Active Encounters Date Type Department Care Team Description 12/24/2024 Telephone Gastroenterology - 299 [facility] [address] [address] Pamela García MA Results 12/21/2024 10:20 AM EDT Anesthesia Event [facility] Endoscopy [address] [place] [address] Miguel Butcher MD 12/21/2024 9:34 AM EDT - 12/21/2024 11:59 PM EDT Hospital Encounter [facility] Endoscopy [address] [place] [address] Santhosh Valenzuela MD Barnes, Tyanna R, CRNA History of colon polyps Discharge Disposition: Home or Self Care from Last 3 Months Medical History Medical History Date Comments Hypertension HIV (human immunodeficiency virus infection) (CM S/HCC V24, CMS/HCC V28) Social History Tobacco Use Types Packs/Day Years Used Date Smoking Tobacco: Former Cigarettes Smokeless Tobacco: Never Tobacco Cessation:Counseling Given: Not Answered Alcohol Use Standard Drinks/Week Comments Not Currently 0 (1 standard drink = 0.6 oz pur e alcohol) Interpersonal Safety Answer Date Record ed Physical Abuse 12/21/2024 Verbal Abuse 12/21/2024 Sex and Gender Information Value Date Recorded Sex Assigned at Not on file Legal Sex Male 9:47 AM EST Gender Identity Not on file Sexual Orientation Not on file Obstetrics History Last Filed Vital Signs Vital Sign Reading Time Taken Comments Blood Pressure 147/100 12/21/2024 11:05 AM EDT Pulse 70 12/21/2024 11:05 AM EDT Temperature 36.7 C (98 F) 12/21/2024 10:45 AM EDT Respiratory Rate 18 12/21/2024 11:05 AM EDT Oxygen Saturation 99% 12/21/2024 11:05 AM EDT Inhaled Oxygen Concentration - - Weight 98.4 kg (217 lb) 12/21/2024 10:01 AM EDT Height 185.4 cm (6' 1 ) 12/21/2024 10:01 AM EDT Body Mass Index 28.63 12/21/2024 10:01 AM EDT Plan of Treatment Health Maintenance Due Date Last Done Comments Meningococcal ACWY Vaccine (1 - Risk 2-dose series) 1962 MMR Vaccines (1 of 2 - Risk 2-dose series) 1978 Hepatitis A Vaccines (1 of 2 - Risk 2-dose series) 1979 Zoster Vaccines (1 of 2) 1979 Pneumococcal Vaccine: 50+ Years (2 of 2 - PCV) 04/13/2012 04/13/2011 DTaP,Tdap,and Td Vaccines (2 - Tdap) 05/06/2019 05/06/2009 Hepatitis B Vaccines (1 of 3 - Risk 3-dose series) 2020 RSV Immunization Adult Patients (1 - Risk 60-74 years 1-dose series) 2020 COVID-19 Vaccine (3 - Pfizer risk series) 01/19/2021 12/22/2020, 12/01/2020 Hepatitis C Screening 07/03/2022 Social Influencers of Health Screening 07/03/2022 Depression Screening 08/05/2024 Influenza Vaccine (#1) 2025 , 05/23/2021, 04/18/2019, Additional history exists Hypertension/CHF/CAD Annual BMP Blood Test 12/03/2025 12/03/2024, 09/17/2024 Colorectal Cancer Screening: Colonoscopy 12/21/2026 12/21/2024, 12/02/2024 Cholesterol Screening (Lipid Panel) 12/03/2029 12/03/2024, 12/03/2024 HIB Vaccines Aged Out No longer eligi ble based on patient's age to complete this topic HPV Vaccines Aged Out No longer eligi ble based on patient's age to complete this topic IPV Vaccines Aged Out No longer eligi ble based on patient's age to complete this topic Meningococcal B Vaccine Aged Out No l onger eligible based on patient's age to complete this topic RSV Immunization Patients Under 20 months Aged Out No longer eligible based on patient's age to complete this topic Varicella Vaccines Aged Out No longer eligible based on patient's age to complete this topic Procedures Procedure Name Priority Date/Time Associated Diagnosis Comments COLONOSCOPY Routine 12/21/2024 10:44 AM EDT History of colon polyps TISSUE EXAM Routine 12/21/2024 10:33 AM EDT History of colon polyps from Last 3 Months Results * COLONOSCOPY Anesthesia - MAC; [facility] ENDOSCOPY (12/21/2024 10:44 AM EDT) Anatomical Region Laterality Modality Endoscopy 12/21/2024 10:2 2 AM EDT Impressions 12/21/2024 10:47 AM EDT - One 9 mm polyp in the ascending colon, removed with a hot snare. Resected and retrieved. - Two 9 to 10 mm polyps in the transverse colon, removed with a hot snare. Resected and retrieved. - One 13 mm polyp in the descending colon, removed with a hot snare. Resected and retrieved. - The examination was otherwise normal on direct and retroflexion views. Recommendation: - Await pathology results. - Repeat colonoscopy in 2 years for surveillance. Narrative 12/21/2024 10:47 AM EDT [facility] GI Patient Name: Rex Hanson Procedure Date: 12/21/2024 10:22 AM Date of : 1960 Age: 64 Room: ROOM 15 Gender: Male Note Status: Finalized Attending MD: Santhosh Valenzuela MD, Procedure Date No Time: 12/21/2024 Procedure: Colonoscopy Indications: High risk colon cancer surveillance: Personal history of colonic polyps, Recent poor prep Providers: Santhosh Valenzuela MD Referring MD: Santhosh Valenzuela MD Medicines: Propofol per Anesthesia Complications: No immediate complications. Estimated Blood Loss: Estimated blood loss: none. Procedure: Pre-Anesthesia Assessment: - ASA Grade Assessment: II - A patient with mild systemic disease. After I obtained informed consent, the scope was passed under direct vision. Throughout the procedure, the patient's blood pressure, pulse, and oxygen saturations were monitored continuously.The Colonoscope was introduced through the anus and advanced to the cecum, identified by appendiceal orifice and ileocecal valve. The colonoscopy was performed without difficulty. The patient tolerated the procedure well. The quality of the bowel preparation was good. Findings: The perianal and digital rectal examinations were normal. A 9 mm polyp was found in the ascending colon. The polyp was sessile. The polyp was removed with a hot snare. Resection and retrieval were complete. Two pedunculated polyps were found in the transverse colon. The polyps were 9 to 10 mm in size. These polyps were removed with a hot snare. Resection and retrieval were complete. A 13 mm polyp was found in the descending colon. The polyp was pedunculated. The polyp was removed with a hot snare. Resection and retrieval were complete. The exam was otherwise without abnormality on direct and retroflexion views. Procedure Code(s): --- Professional --- 27006, Colonoscopy, flexible; with removal of tumor(s), polyp(s), or other lesion(s) by snare technique Diagnosis Code(s): --- Professional --- Z86.010, Personal history of colonic polyps D12.2, Benign neoplasm of ascending colon D12.3, Benign neoplasm of transverse colon (hepatic flexure or splenic flexure) D12.4, Benign neoplasm of descending colon CPT copyright 2020 [employer]. All rights reserved. The codes documented in this report are preliminary and upon quilting supervisor review may be revised to meet current compliance requirements. Santhosh Valenzuela MD 12/21/2024 10:47:30 AM This report has been signed electronically.Santhosh Valenzuela MD Number of Addenda: 0 Note Initiated On: 12/21/2024 10:22 AM Scope In: Scope Out: Endoscopy Department at [facility] - [address] [place] [id number] Procedure Note Santhosh Valenzuela MD - 12/21/2024 [facility] GI Patient Name: Rex Hanson Procedure Date: 12/21/2024 10:22 AM Date of : 1960 Age: 64 Room: ROOM 15 Gender: Male Note Status: Finalized Attending MD: Santhosh Valenzuela MD, Procedure Date No Time: 12/21/2024 Procedure: Colonoscopy Indications: High risk colon cancer surveillance: Personalhistory of colonic polyps, Recent poor prep Providers: Santhosh Valenzuela MD Referring MD: Santhosh Valenzuela MD Medicines: Propofol per Anesthesia Complications: No immediate complications. Estimated Blood Loss: Estimated blood loss: none. Procedure: Pre-Anesthesia Assessment: - ASA Grade Assessment: II - A patient with mild systemic disease. After I obtained informed consent, the scope was passed under direct vision. Throughout theprocedure, the patient's blood pressure, pulse, and oxygen saturations were monitored continuously.The Colonoscope was introduced through the anus and advanced to the cecum, identified by appendiceal orifice and ileocecal valve. The colonoscopy was performed without difficulty. The patient tolerated the procedure well. The quality of the bowel preparation was good. Findings: The perianal and digital rectal examinations were normal. A 9 mm polyp was found in the ascending colon. The polyp was sessile. The polyp was removed with a hot snare. Resection and retrieval were complete. Two pedunculated polyps were found in thetransverse colon. The polyps were 9 to 10 mm in size. These polyps were removed with a hot snare. Resection and retrieval were complete. A 13 mm polyp was found in the descending colon.The polyp was pedunculated. The polyp was removed witha hot snare. Resection and retrieval were complete. The exam was otherwise without abnormality ondirect and retroflexion views. Procedure Code(s): --- Professional --- 52399, Colonoscopy, flexible; with removal of tumor(s), polyp(s), or other lesion(s) by snare technique Diagnosis Code(s): --- Professional --- Z86.010, Personal history of colonic polyps D12.2, Benign neoplasm of ascending colon D12.3, Benign neoplasm of transverse colon (hepatic flexure or splenic flexure) D12.4, Benign neoplasm of descending colon CPT copyright 2020 [employer]. All rights reserved. The codes documented in this report are preliminary and upon quilting supervisor reviewmay be revised to meet current compliance requirements. Santhosh Valenzuela MD 12/21/2024 10:47:30 AM This report has been signed electronically.Santhosh Valenzuela MD Number of Addenda: 0 Note Initiated On: 12/21/2024 10:22 AM Scope In: Scope Out: Endoscopy Department at [facility] - [address] [place] [id number] IMPRESSION: - One 9 mm polyp in the ascending colon, removed with a hot snare. Resected and retrieved. - Two 9 to 10 mm polyps in the transverse colon, removed with a hot snare. Resected and retrieved. - One 13 mm polyp in the descending colon, removed with a hot snare. Resected and retrieved. - The examination was otherwise normal on directand retroflexion views. Recommendation: - Await pathology results. - Repeat colonoscopy in 2 years for surveillance. us Santhosh Valenzuela MD GI~PROCEDURE ORDERABLES Fin al Result * Tissue exam (12/21/2024 10:33 AM EDT) Final Diagnosis A. Ascending Colon, polyp: Tubular adenoma. B. Transverse Colon, polyps x 2: Two tubular adenomas. C. Descending Colon, polyp: Tubular adenoma. 12/22/2024 2:56 PM EDT [facility] HOSPITAL LAB Gross Description A. Large Intestine, Right/Ascending Colon, polyp x1: Labeled ascending colon polyp x 1 . Received in formalin are two irregular ornelas-pink mucosal tissue fragments, measuring less than 0.1 cm and 0.3 cm in greatest dimension, which are wrapped in paper and submitted in toto in one cassette, two pieces, multiple levels on one slide. B. Large Intestine, Transverse Colon, polyp x2: Labeled trans colon polyp x 2 . Received in formalin are two ornelas-pink mucosal polyps, each measuring approximately 0.5 cm in greatest dimension. The resection margins are differentially inked. The polyps are bisected. Also received in the same container is a 0.1 cm irregular ornelas-pink mucosal tissue fragment. The specimen is wrapped in paper and entirely submitted in one cassette, five pieces, multiple levels on one slide. C. Large Intestine, Left/Descending Colon, polyp x1: Labeled descending colon polyp x 1 . Received in formalin is a 1.2 x 1 x 0.8 cm ornelas-pink mucosal polyp. The resection margin is inked black. The polyp is bisected and entirely submitted in one cassette, two pieces, multiple levels on one slide. MAYRA 12/22/2024 2:56 PM EDT [facility] Disclaimer Unless otherwise specified, all tissue is 10% NB formalin fixed and paraffin embedded. 12/22/2024 2:56 PM EDT [facility] Tissue Ascending colon structure / Unknown 12/21/2024 10:33 AM EDT 12/21/2024 11:27 AM EDT Tissue specimen (specimen) Transverse colon structure / Unknown 12/21/2024 10:36 AM EDT 12/21/2024 11:27 AM EDT Tissue specimen (specimen) Descending colon structure / Unknown 12/21/2024 10:40 AM EDT 12/21/2024 11:27 AM EDT Santhosh Valenzuela MD LAB PATHOLOGY ORDERABLES Fi nal Result [facility] [address] [place] [address], from Last 3 Months Insurance MEDICAID - [place] Care Teams Brush Cleaner Relationship Specialty Start Date End Date Jacqui Barreto PA [address] [place] [address] PCP - General 03/10/24
[2025-03-07 13:10] LABS: MANUAL DIFF FLAG NO
[2025-03-07 13:12] LABS: Hematocrit 48.6 % (42.0-52.0); Imm Gran Abs Auto 0.01 X10*3/uL (0.00-0.03); Imm Gran Pct Auto 0.2 % (0.0-0.4); Lymphocytes Absolute Auto 2.1 X10*3/uL (1.2-4.9); Mean Corpuscular HGB Conc 34.8 g/dl (31.0-36.0); Mean Corpuscular Hemoglobin 30.2 pg (27.0-33.0); Mean Corpuscular Volume 86.9 fL (80.0-98.0); NRBC Abs Auto 0.000 X10*3/uL (0.0-0.012); NRBC Pct Auto 0.0 /100WBC (0.0-0.2); Platelet Count 193 X10*3/uL (160-400); Red Blood Count 5.59 X10*6/uL (4.60-5.80); White Blood Count 4.9 X10*3/uL (4.8-10.8)
[2025-03-07 13:18] LABS: Hemoglobin 16.9 g/dl (14.0-18.0)
[2025-03-07 13:28] LABS: Alanine Aminotransferase 12 U/L (0-40); Albumin Level 4.5 g/dL (3.5-5.0); Alkaline Phosphatase 56 U/L (39-117); Anion Gap 14 (12-20); Aspartate Amino Transferase 19 U/L (5-37); Blood Urea Nitrogen 12 mg/dL (9-16); Calcium 9.2 mg/dL (8.4-10.2); Carbon Dioxide 22 mmol/L (22-29); Chloride 108 mmol/L (96-108); Creatinine Clr Calc Pharmacy 70.2; Estimated Glomerular Filt Rate 55; Lipase 11 U/L (8-78); Potassium 3.8 mmol/L (3.3-5.1); Sodium 140 mmol/L (135-145); Total Protein 7.3 g/dL (6.5-8.0)
[2025-03-07 14:29] VITALS: BP 122/81; PULSE 58; RESP 16; TEMP 36.6; O2SAT 99
[2025-03-07 16:11] VITALS: BP 124/78; PULSE 56; RESP 18; TEMP 36.8; O2SAT 99
[2025-03-07] MEDS: iohexoL 350 MG/ML 100 ML INFUS..BTL IV (16:48)
[2025-03-07 16:56] LABS: Appearance Urine Clear; Glucose Urine UA Negative (Negative); PH 6.0 (5.0-9.0); Specific Gravity - Urine >= 1.030 (1.005-1.025); UMIC TRIGGER UACC YES
[2025-03-07 18:40] VITALS: BP 144/88; PULSE 62; RESP 16; TEMP 36.2; O2SAT 99
[2025-03-07] MEDS: Lactated Ringers 1,000 ML 999 ML IV (18:46)
[2025-03-07] MEDS: Sucralfate Oral Suspension 1 GM/10 ML ORAL.SUSP PO (18:46)
[2025-03-07 19:00] LABS: Cannabinoid Screen Urine POSITIVE (Not Detect)
[2025-03-08 00:53] VITALS: BP 144/88; PULSE 62; RESP 16; TEMP 36.2; O2SAT 99
== END 2025-03-07 21:00 | disposition home or self-care (01) ==
PROVIDERS: Nurse Practitioner Family; Emergency Provider Emergency Medicine
DX: R10.9 Unspecified abdominal pain (principal); B20 Human immunodeficiency virus [HIV] disease
CPT/HCPCS: 36415; 74177; 80053; 80307; 81001; 82248; 83690; 85025; 96361; 96374; 99285; J1308; J7120; Q9967

== ENCOUNTER → 2025-03-07 15:13 | Outpatient (BNV) | payer MEDICAID, SELFPAY | PROVIDERS: Emergency Provider Emergency Medicine; Visit Provider Radiology Diagnostic Radiology | DX: R10.84 Generalized abdominal pain (principal) | CPT/HCPCS: 74177 ==